=== PATIENT | female | born 1935 | race Two or more races ===

== ENCOUNTER 2017-05-16 13:17 | Outpatient (CLI) | payer MEDICARE, MEDICAID ==
[~2017-05-16 13:17] MED LIST: COLACE100 MG PO; LEVOTHYROXINE25 MCG PO; TYLENOL #31 TAB PO; UNK BP MED PO; UNK CHOLESTEROL PO
[2017-05-16 13:51] VITALS: BP 132/62
[2017-05-16] MEDS ORDERED: UNOBMED (14:02)
--- NOTE | 2017-05-16 14:21 | GI Initial Consult Note ---
Sloane Cristobal NPerlaPPerla 05/16/17 1421: History of Present Illness General Date patient seen: May 16, 2017 Time patient seen: 14:01 Referring physician: YAMILE Reason for Consultation: GI BLEED Present Illness HPI 82 year old female patient referred by Dr. Trimble presents today with c/o of GI bleed. The patient has history of EGD/colonoscopy performed back in 2009 found to have diffused gastritis, positive for H. Pylori s/p treatment and 3 colonic polyps. s/p polypectomy biopsy revealed high grade dysplasia in the ascending colon. The patient was instructed to return for repeat colonoscopy via certified mail in 2012 which was never done. Pt seen here in clinic today c/o of rectal bleed x4 in which she describes and dark. In addition, the patient states she has gradually been losing weight (noted 20 lbs over the past 7 years) . Ambulatory with no apparent distress. Home Meds Reported Medications Valsartan (DIOVAN) 80 Mg Tab, 160 MG ORAL DAILY, TAB 05/17/17 Meloxicam* (MELOXICAM*) 15 Mg Tablet, 15 MG PO DAILY, TAB 05/17/17 Levothyroxine Sodium* (LEVOTHYROXINE SODIUM*) 100 Mcg Tablet, 100 MCG ORAL DAILY , TAB Take in the morning on an empty stomach, at least 30 minutes before food. 05/17/17 Discontinued Reported Medications Levothyroxine Sodium* (LEVOTHYROXINE SODIUM*) 25 Mcg Tablet, 25 MCG PO DAILY 09/09/12 Discontinued Scripts Docusate Sodium* (COLACE*) 100 Mg Capsule, 100 MG PO BID, #30 CAP Prov:LACHELLE MCDUFFIE P.APerla 09/09/12 Acetaminophen/Codeine 300MG/30MG* (TYLENOL #3*) 1 Tab Tab, 1 TAB PO Q6H, #15 TAB Prov:LACHELLE MCDUFFIE P.APerla 09/09/12 Med list reviewed/reconciled: Yes Allergies: Coded Allergies: PENICILLINS (Verified Allergy, Mild, red spots, 05/17/17) Patient History History Provided By: Patient PMH Narrative HTN Hyperthyroidism Past Surgical History: Appendicitis Mar 2017 Left thumb ganglion Family History Narrative Sister >> liver CA sister >> GI malignancy Social History: Denies: smoking, alcohol use, drug use, other Review of Systems All Other Systems: negative except mentioned in HPI Physical Exam Vital Signs Date Time Temp Pulse Resp B/P (MAP) Pulse Ox O2 Delivery O2 Flow Rate FiO2 05/16/17 13:51 97.7 71 18 132/62 96 Sp02 EP Interpretation: reviewed General Appearance: well appearing, no apparent distress, alert Head: normocephalic EENT: PERRL/EOMI, normal ENT inspection Neck: supple Respiratory: normal breath sounds, no respiratory distress Cardiovascular: normal rate Gastrointestinal: normal inspection, non tender, soft Rectal: normal exam Genitourinary: normal inspection Musculoskeletal: normal inspection, back normal Neurologic: normal inspection, alert, oriented x3, responsive Psychiatric: normal inspection, judgement/insight normal, memory normal Skin: normal inspection, normal color, no rash, warm/dry Lymphatic: normal inspection, no adenopathy GI: Plan Problems: (1) History of Helicobacter pylori infection (2) High grade dysplasia in colonic adenoma (3) Colonoscopy planned (4) Weight loss (5) GI bleed (6) HTN (hypertension) (7) Hyperthyroidism Plan Colonoscopy scheduled 05/18/17 - CLD & prep instructions acknowledged by patient. labs to be drawn >> CBC, CMP, CEA Seen with Dr. Garcia. Thank you for this patient referral. ASHER GARCIA 05/17/17 7450: History of Present Illness Present Illness Home Meds Reported Medications Valsartan (DIOVAN) 80 Mg Tab, 160 MG ORAL DAILY, TAB 05/17/17 Meloxicam* (MELOXICAM*) 15 Mg Tablet, 15 MG PO DAILY, TAB 05/17/17 Levothyroxine Sodium* (LEVOTHYROXINE SODIUM*) 100 Mcg Tablet, 100 MCG ORAL DAILY , TAB Take in the morning on an empty stomach, at least 30 minutes before food. 05/17/17 Discontinued Reported Medications Levothyroxine Sodium* (LEVOTHYROXINE SODIUM*) 25 Mcg Tablet, 25 MCG PO DAILY 09/09/12 Discontinued Scripts Docusate Sodium* (COLACE*) 100 Mg Capsule, 100 MG PO BID, #30 CAP Prov:RETALACHELLE P.A. 09/09/12 Acetaminophen/Codeine 300MG/30MG* (TYLENOL #3*) 1 Tab Tab, 1 TAB PO Q6H, #15 TAB Prov:LACHELLE MCDUFFIE P.A. 09/09/12 Allergies: Coded Allergies: PENICILLINS (Verified Allergy, Mild, red spots, 05/17/17) GI: Plan Plan The patient was seen and examined at bedside and all new and available data was reviewed in the patients chart. I agree with the above findings, impression and plan. (Patient seen earlier today. Signature stamp does not reflect patient encounter time.). -Moriah Oseguera MDh Leobardo Matre May 16, 2017 14:21 ASHER GARCIA May 17, 2017 14:52
[2017-05-17] MEDS ORDERED: COMBIVENT RESPIM4 GM IH (11:54)
[2017-05-17] MEDS ORDERED: SIMVASTATIN20 MG ORAL (11:54)
[2017-05-17] MEDS ORDERED: FOLIC ACID1 MG ORAL (11:54)
[2017-05-17] MEDS ORDERED: VESICARE5 MG ORAL (11:54)
[2017-05-17] MEDS ORDERED: DIOVAN80 MG ORAL (11:54)
[2017-05-17] MEDS ORDERED: MELOXICAM15 MG PO (11:54)
[2017-05-17] MEDS ORDERED: LEVOTHYROXINE100 MCG ORAL (11:54)
== END 2017-05-16 13:50 | disposition home or self-care (01) ==
LOC: PAN 13:17
DX: K62.5 Hemorrhage of anus and rectum (principal); D12.6 Benign neoplasm of colon, unspecified; R63.4 Abnormal weight loss; I10 Essential (primary) hypertension; E05.90 Thyrotoxicosis, unspecified without thyrotoxic crisis or storm; Z88.0 Allergy status to penicillin
CPT/HCPCS: 99201

== ENCOUNTER 2017-05-18 09:01 | Day surgery (SDC) | payer MEDICARE, MEDICAID ==
[~2017-05-18] VITALS: Ht 152.4 cm; Wt 66.2 kg
[2017-05-18] VITALS (8 sets, daily range): BP systolic 121–139; BP diastolic 52–73
[~2017-05-18 09:01] MED LIST changes: +COMBIVENT RESPIM4 GM IH; +DIOVAN80 MG ORAL; +FOLIC ACID1 MG ORAL; +LEVOTHYROXINE100 MCG ORAL; +MELOXICAM15 MG PO; +SIMVASTATIN20 MG ORAL; +UNOBMED; +VESICARE5 MG ORAL
--- NOTE | 2017-05-18 09:44 | Anethesia Preoperative Eval ---
Anesthesia Pre-op PMH/ROS General Date of Evaluation: May 18, 2017 Time of Evaluation: 09:41 Anesthesiologist: attila ASA Score: ASA 3 Mallampati Score Class I : Soft palate, uvula, fauces, pillars visible Class II: Soft palate, uvula, fauces visible Class III: Soft palate, base of uvula visible Class IV: Only hard plate visible Mallampati Classification: Class II Surgeon: elian Diagnosis: gi bleed Surgical Procedure: egd/colonoscopy Anesthesia History: none Family History: no anesthesia problems Allergies: Coded Allergies: PENICILLINS (Verified Allergy, Mild, red spots, 05/17/17) Medications: see eMAR Past Medical History Cardiovascular: Reports: HTN Endocrine: Reports: hypothyroidism Hematology/Immune: Reports: anemia, other - adenoma Musculoskeletal/Integumentary: Reports: OA Other: obesity Anesthesia Pre-op Phys. Exam Physician Exam Last Vital Signs Date Time Temp Pulse Resp B/P (MAP) Pulse Ox O2 Delivery O2 Flow Rate FiO2 05/18/17 09:41 98.0 83 20 139/73 99 Room Air Constitutional: NAD Neurologic: CN 2-12 intact Cardiovascular: RRR Respiratory: CTA Gastrointestinal: S/NT/ND Airway Exam Mallampati Score: Class II MO: full Neck: supple TMD: 2fb ROM: limited Teeth: missing Anesthesia Pre-op A/P Labs Labs Test 05/18/17 09:50 White Blood Count 4.5 K/UL (4.8-10.8) Red Blood Count 3.37 M/UL (4.20-5.40) Hemoglobin 8.7 G/DL (12.0-16.0) Hematocrit 27.7 % (37.0-47.0) Mean Corpuscular Volume 82 FL (80-99) Mean Corpuscular Hemoglobin 25.7 PG (27.0-31.0) Mean Corpuscular Hemoglobin Concent 31.2 G/DL (32.0-36.0) Red Cell Distribution Width 17.2 % (11.6-14.8) Platelet Count 369 K/UL (150-450) Mean Platelet Volume 4.9 FL (6.5-10.1) Neutrophils (%) (Auto) 64.6 % (45.0-75.0) Lymphocytes (%) (Auto) 28.8 % (20.0-45.0) Monocytes (%) (Auto) 5.2 % (1.0-10.0) Eosinophils (%) (Auto) 0.9 % (0.0-3.0) Basophils (%) (Auto) 0.4 % (0.0-2.0) Sodium Level 140 mEQ/L (135-145) Potassium Level 4.0 mEQ/L (3.4-4.9) Chloride Level 103 mEQ/L (98-107) Carbon Dioxide Level 23 mEQ/L (20-30) Anion Gap 14 (5-15) Blood Urea Nitrogen 11 mg/dL (7-23) Creatinine 0.9 mg/dL (0.5-0.9) Estimat Glomerular Filtration Rate mL/min (>60) Glucose Level 115 mg/dL (74-106) Calcium Level 9.0 mg/dL (8.6-10.2) Total Bilirubin 0.5 mg/dL (0.0-1.2) Aspartate Amino Transf (AST/SGOT) 18 U/L (5-40) Alanine Aminotransferase (ALT/SGPT) 8 U/L (3-33) Alkaline Phosphatase 83 U/L (35-104) Total Protein 7.0 g/dL (6.6-8.7) Albumin 3.8 g/dL (3.5-5.2) Globulin 3.2 g/dL Albumin/Globulin Ratio 1.1 (1.0-2.7) Carcinoembryonic Antigen 1.4 ng/mL Studies Pre-op Studies: EKG - sinus rhythm with pacs Risk Assessment & Plan Assessment: asa3 Plan: mac Status Change Before Surgery: No Pre-Antibiotics Drug: ANA MARIA Martines May 18, 2017 09:44
[2017-05-18 10:19] LABS: BASOPHILS % (AUTO) 0.4 % (0.0-2.0); EOSINOPHILS % (AUTO) 0.9 % (0.0-3.0); LYMPHOCYTES % (AUTO) 28.8 % (20.0-45.0); MEAN CORPUSCULAR HEMOGLOBIN 25.7 PG (27.0-31.0); MEAN CORPUSCULAR HGB CONC 31.2 G/DL (32.0-36.0); MEAN CORPUSCULAR VOLUME 82 FL (80-99); MEAN PLATELET VOLUME 4.9 FL (6.5-10.1); MONOCYTES % (AUTO) 5.2 % (1.0-10.0); NEUTROPHILS % (AUTO) 64.6 % (45.0-75.0); PLATELET COUNT 369 K/UL (150-450); RED BLOOD COUNT 3.37 M/UL (4.20-5.40); RED CELL DISTRIBUTION WIDTH 17.2 % (11.6-14.8); WHITE BLOOD COUNT 4.5 K/UL (4.8-10.8)
--- NOTE | 2017-05-18 10:20 | Pre-Procedure Note/Attestation ---
Pre-Procedure Note/Attestation Complete Prior to Procedure Planned Procedure: not applicable Procedure Narrative: esophagogastroduodenoscopy and colonoscopy Indications for Procedure Pre-Operative Diagnosis: rectal bleed and wt loss Attestation I attest that I discussed the nature of the procedure; its benefits; risks and complications; and alternatives (and the risks and benefits of such alternatives ), prior to the procedure, with the patient (or the patient's legal floor representative). I attest that, if there was a reasonable possibility of needing a blood transfusion, the patient (or the patient's legal floor representative) was given the [facility] standardized written summary, pursuant to the [place] Blood Safety Act ([place] Health and Safety Code # 1645, as amended). I attest that I re-evaluated the patient just prior to the surgery and that there has been no change in the patient's H&P, except as documented below: ASHER GARCIA May 18, 2017 10:20
--- NOTE | 2017-05-18 10:20 | Short Stay Surgery H&P ---
History of Present Illness History of Present Illness Chief Complaint see recent full consult HPI Felicia Gunter is a 82 year old female who was admitted on for Rectal Bleeding Patient History Allergies: Coded Allergies: PENICILLINS (Verified Allergy, Mild, red spots, 05/17/17) PAST MEDICAL HISTORY: Past Surgeries: Social History: Medication History Scheduled Levothyroxine Sodium* (Levothyroxine Sodium*), 100 MCG ORAL DAILY, (Reported) Meloxicam* (Meloxicam*), 15 MG PO DAILY, (Reported) Valsartan (Diovan), 160 MG ORAL DAILY, (Reported) Discontinued Medications Acetaminophen/Codeine 300MG/30MG* (Tylenol #3*), 1 TAB PO Q6H Discontinued Reason: MD discontinued med Docusate Sodium* (Colace*), 100 MG PO BID Discontinued Reason: MD discontinued med Levothyroxine Sodium* (Levothyroxine Sodium*), 25 MCG PO DAILY, (Reported) Discontinued Reason: MD discontinued med Physical Exam Vital Signs Last Vital Signs Date Time Temp Pulse Resp B/P (MAP) Pulse Ox O2 Delivery O2 Flow Rate FiO2 05/18/17 09:41 98.0 83 20 139/73 99 Room Air Labs Laboratory Tests Test 05/18/17 09:50 White Blood Count Pending Red Blood Count Pending Hemoglobin Pending Hematocrit Pending Mean Corpuscular Volume Pending Mean Corpuscular Hemoglobin Pending Mean Corpuscular Hemoglobin Concent Pending Red Cell Distribution Width Pending Platelet Count Pending Mean Platelet Volume Pending Neutrophils (%) (Auto) Pending Lymphocytes (%) (Auto) Pending Monocytes (%) (Auto) Pending Eosinophils (%) (Auto) Pending Basophils (%) (Auto) Pending Sodium Level Pending Potassium Level Pending Chloride Level Pending Carbon Dioxide Level Pending Blood Urea Nitrogen Pending Creatinine Pending Estimat Glomerular Filtration Rate Pending Glucose Level Pending Calcium Level Pending Total Bilirubin Pending Aspartate Amino Transf (AST/SGOT) Pending Alanine Aminotransferase (ALT/SGPT) Pending Alkaline Phosphatase Pending Total Protein Pending Albumin Pending Globulin Pending Carcinoembryonic Antigen Pending Plan Attestation Are the patient's medical conditions optimized for surgery? ASHER GARCIA May 18, 2017 10:20
[2017-05-18 10:33] LABS: ALANINE AMINOTRANSFERASE 8 U/L (3-33); ALBUMIN/GLOBULIN RATIO 1.1 (1.0-2.7); ANION GAP 14 (5-15); ASPARTATE AMINO TRANSFERASE 18 U/L (5-40); CARBON DIOXIDE 23 mEQ/L (20-30); CHLORIDE 103 mEQ/L (98-107); CREATININE 0.9 mg/dL (0.5-0.9); HEMOLYSIS 15; SODIUM 140 mEQ/L (135-145)
[2017-05-18] MEDS ORDERED: Lidocaine 1% MPF 10mg/ml 5ml ONE (10:40)
[2017-05-18] MEDS ORDERED: Propofol 200mg/20ml IV ONE (10:40)
[2017-05-18] MEDS ORDERED: DiphenhydrAMINE 50mg/ml Inj IVP PRN (11:00)
[2017-05-18] MEDS ORDERED: Midazolam 2mg/2ml Inj IVP PRN (11:00)
[2017-05-18] MEDS ORDERED: Atropine Inj 1mg/10ml Syr IV PRN (11:00)
[2017-05-18] MEDS ORDERED: fentaNYL 100 mcg/2 mL IV PRN (11:00)
--- NOTE | 2017-05-18 11:26 | Endoscopy Procedure Note ---
Endoscopy Procedure Note Indication for Procedure: anemia Procedures Performed: EGD, colonoscopy Operative Findings/Diagnosis: gastritis, diverticulosis Specimen: yes Pt Tolerated Procedure Well: Yes Estimated Blood Loss: none Anesthesiologist: nael Anesthesia: MAC Implant(s) used?: No 50 yrs or older w/o bx or poly: No 10yrs. F/U not recommended: Yes If not recommended, why?: Above average risk 10 yrs. F/U needed: Yes 18 years or older w/prev. colo: Yes <3yrs. since last colonoscopy: No ASHER GARCIA May 18, 2017 11:26
--- NOTE | 2017-05-18 11:47 | Immediate Post-Op Evaluation ---
Immediate Post-Op Evalulation Immediate Post-Op Evalulation Procedure: egd/colonoscopy Date of Evaluation: May 18, 2017 Time of Evaluation: 11:47 IV Fluids: 500ml Blood Products: none Estimated Blood Loss: negligible Blood Pressure Systolic: 125 Blood Pressure Diastolic: 58 Pulse Rate: 74 Respiratory Rate: 18 O2 Sat by Pulse Oximetry: 99 Temperature (Fahrenheit): 97.3 Pain Score (1-10): 0 Nausea: No Vomiting: No Complications none Patient Status: awake, reacts, patent Hydration Status: adequate Drug: ANA MARIA Martines May 18, 2017 11:47
--- NOTE | 2017-05-18 11:49 | 48 Hour Post Anesthesia Eval ---
Post Anesthesia Evaluation Procedure: egd/colonoscopy Date of Evaluation: May 18, 2017 Time of Evaluation: 11:49 Blood Pressure Systolic: 136 0: 52 Pulse Rate: 64 Respiratory Rate: 18 Temperature (Fahrenheit): 97.3 O2 Sat by Pulse Oximetry: 100 Airway: patent Nausea: No Vomiting: No Pain Intensity: 0 Hydration Status: adequate Cardiopulmonary Status: stable Mental Status/LOC: patient returned to baseline Post-Anesthesia Complications: none Follow-up care needed: N/A ANA MARIA ARMENDARIZ May 18, 2017 11:49
--- NOTE | 2017-05-18 22:15 | Procedure Note ---
DATE OF PROCEDURE: 05/18/2017 SURGEON: Bala Walker M.D. REFERRING PHYSICIAN: Edmundo Trimble M.D. PROCEDURE: Upper endoscopy with biopsy and colonoscopy with biopsy. ANESTHESIOLOGIST: Janet Suggs M.D. INSTRUMENT: Olympus adult flexible upper endoscope and colonoscope. INDICATION: Anemia. The procedure, risks, benefits, and possible consequences, including hemorrhage, aspiration, perforation and infection, and alternative treatments, were explained to the patient/legal guardian by Dr. Bala Walker and the patient/legal guardian understood and accepted these risks. DESCRIPTION OF PROCEDURE: After informed consent was obtained and the patient was adequately sedated, Olympus upper endoscope was advanced from mouth into the second portion of the duodenum and retroflexion was performed in the stomach. The patient had diffuse atrophic gastritis. Random biopsy from antrum and body was obtained to rule out H. pylori infection. At this time, the upper endoscope was retrieved and the patient was turned over for colonoscopy. First, a rectal exam was performed, which showed normal. Then, the scope was advanced from the rectum into the cecum documented by appendiceal orifice, ileocecal valve, and right upper quadrant palpation. Quality of prep was overall okay, fair. The patient had significant diverticulosis throughout the colon, more prominent in the left, especially in the sigmoid and the descending colon. There were 2 polyps, both very small, 1 in the sigmoid and 1 in the transverse colon, removed with the cold biopsy forceps technique. There is no active bleeding at this time. No obvious mass or polyp was seen. Retroflexion in the rectum showed evidence of internal hemorrhoids. SUMMARY OF FINDINGS: 1. Atrophic gastritis, status post biopsy. 2. Two colonic polyps removed. 3. Diverticulosis. 4. Internal hemorrhoids. RECOMMENDATIONS: 1. Follow up biopsies and treat accordingly. 2. We will recommend to follow up as an outpatient. Possibly, we are going to order a CT scan to further evaluate for the cause of anemia and weight loss. I want to thank Dr. Edmundo Trimble for this kind referral. Bala Walker M.D. DR: ELAINE JOB#: [id number] CC: Edmundo Trimble M.D.; Fax#: [phone] [facility]
== END 2017-05-18 12:55 | disposition home or self-care (01) ==
LOC: GAS 09:01
DX: K29.50 Unspecified chronic gastritis without bleeding (principal); D64.9 Anemia, unspecified; K63.5 Polyp of colon; K57.30 Diverticulosis of large intestine without perforation or abscess without bleeding; K64.8 Other hemorrhoids; I10 Essential (primary) hypertension; E03.9 Hypothyroidism, unspecified; M19.90 Unspecified osteoarthritis, unspecified site; Z88.0 Allergy status to penicillin
CPT/HCPCS: 36415; 43239; 45380; 80053; 82378; 85025; J2704; 94003; 94150

== ENCOUNTER 2017-06-06 12:59 | Outpatient (CLI) | payer MEDICARE, MEDICAID ==
[2017-06-06 13:20] VITALS: BP 136/61
--- NOTE | 2017-06-06 14:18 | GI Progress Note ---
Assessment/Plan Status Narrative Seen with Dr. Walker. Assessment/Plan SUMMARY OF FINDINGS reviewed with patient: 1. Atrophic gastritis, status post biopsy. 2. Two colonic polyps removed. 3. Diverticulosis. 4. Internal hemorrhoids. RECOMMENDATIONS: follow up biopsies and treat accordingly. >> Negative for H. Pylori and negative for high grade dysplasia. rx anusol ordered CT AP for weight loss/anemia. RTC after imaging studies repeat colonoscopy x 5 years Subjective Subjective Gastrointestinal/Abdominal: Reports: no symptoms Subjective hemorrhoids Objective Objective T 97.6 BP 136/61 P 70 wt 147 lbs General Appearance: WD/WN, no apparent distress, alert Cardiovascular: normal rate Respiratory/Chest: normal breath sounds, no respiratory distress Abdominal Exam: normal bowel sounds, non tender, soft Extremities: normal range of motion, non-tender The patient was seen and examined at bedside and all new and available data was reviewed in the patients chart. I agree with the above findings, impression and plan. (Patient seen earlier today. Signature stamp does not reflect patient encounter time.). - Teresa Walker MD Subjective Gastrointestinal/Abdominal: Reports: no symptoms Subjective hemorrhoids Objective Last 24 Hour Vital Signs Date Time Temp Pulse Resp B/P (MAP) Pulse Ox O2 Delivery O2 Flow Rate FiO2 06/06/17 13:20 97.6 70 16 136/61 Sloane Cristobal N.P. Jun 06, 2017 14:18 ASHER WALKER Jun 07, 2017 07:22
== END 2017-06-06 14:00 | disposition home or self-care (01) ==
LOC: PAN 12:59
DX: K29.40 Chronic atrophic gastritis without bleeding (principal); Z86.010 Personal history of colon polyps; K57.90 Diverticulosis of intestine, part unspecified, without perforation or abscess without bleeding; K64.8 Other hemorrhoids
CPT/HCPCS: 99211

== ENCOUNTER 2017-06-12 09:52 | Outpatient (CLI) | payer MEDICARE, MEDICAID ==
--- NOTE | 2017-06-06 14:03 | GI Progress Note ---
Assessment/Plan Problems: (1) Diverticulosis ICD Codes: K57.90 - Diverticulosis of intestine, part unspecified, without perforation or abscess without bleeding SNOMED: 523618895 (2) Bleeding hemorrhoid ICD Codes: K64.9 - Unspecified hemorrhoids SNOMED: 97040046 (3) High grade dysplasia in colonic adenoma ICD Codes: D12.6 - Benign neoplasm of colon, unspecified SNOMED: 996214357 Status: stable Status Narrative Seen with Dr. Walker. Assessment/Plan SUMMARY OF FINDINGS reviewed with patient: 1. Atrophic gastritis, status post biopsy. 2. Two colonic polyps removed. 3. Diverticulosis. 4. Internal hemorrhoids. RECOMMENDATIONS: follow up biopsies and treat accordingly. >> Negative for H. Pylori and negative for high grade dysplasia. rx anusol ordered CT AP for weight loss/anemia. RTC after imaging studies repeat colonoscopy x 5 years Subjective Gastrointestinal/Abdominal: Reports: no symptoms Subjective hemorrhoids Objective T 97.6 BP 136/61 P 70 wt 147 lbs General Appearance: WD/WN, no apparent distress, alert Cardiovascular: normal rate Respiratory/Chest: normal breath sounds, no respiratory distress Abdominal Exam: normal bowel sounds, non tender, soft Extremities: normal range of motion, non-tender Sloane Cristobal N.P. Jun 06, 2017 14:03
[2017-06-12 10:35] LABS: BASOPHILS % (AUTO) 0.4 % (0.0-2.0); EOSINOPHILS % (AUTO) 1.5 % (0.0-3.0); MEAN CORPUSCULAR HEMOGLOBIN 24.3 PG (27.0-31.0); MEAN CORPUSCULAR HGB CONC 29.8 G/DL (32.0-36.0); MEAN CORPUSCULAR VOLUME 82 FL (80-99); MEAN PLATELET VOLUME 5.3 FL (6.5-10.1); MONOCYTES % (AUTO) 4.9 % (1.0-10.0); NEUTROPHILS % (AUTO) 59.2 % (45.0-75.0); PLATELET COUNT 389 K/UL (150-450); RED BLOOD COUNT 4.13 M/UL (4.20-5.40); RED CELL DISTRIBUTION WIDTH 16.9 % (11.6-14.8); WHITE BLOOD COUNT 5.7 K/UL (4.8-10.8)
--- NOTE | 2017-06-12 13:48 | Diagnostic Imaging Report ---
Indication: Weight loss and anemia. Gastritis. Technique: Continuous helical transaxial imaging of the chest, abdomen and pelvis was obtained from the lung bases to the pubic symphysis during intravenous contrast administration. Multiple phases of enhancement obtained. Coronal 2-D reformats were also obtained. Study obtained in a Siemens sensation [address] Total Dose length Product (DLP): [address] Dose Index Volume (CTDIvol): 0.15, 8.11, 56.78, 21.4, 20.38 mGy Comparison: CT chest 06/18/13 Findings: The lungs are essentially clear. There is no mass or nodules. There is a minimal amount of scarring or atelectasis at the lung bases with some reticular densities noted. There is no adenopathy. Aorta is ectatic and calcified. Axilla. Clear. The heart is mildly enlarged. There is a small hiatal hernia present. The liver is hypodense consistent with fatty infiltration. Slightly hyperdense focus noted within nondependent portion of the gallbladder wall. This may be a polyp or wall adherent stone. There is no biliary ductal dilatation. The portal vein enhances normally. Pancreas is unremarkable. The spleen and adrenal glands are unremarkable. No hydronephrosis demonstrated. The uterus is present. Diverticula noted within the colon. No definite evidence of acute diverticulitis. The appendix is not fully seen. There are no secondary signs of acute appendicitis. No free fluid or free air identified. Impression: No malignancy demonstrated on this study. Fatty liver Hiatal hernia Atherosclerotic vascular disease. Watershed stone versus a polyp in the gallbladder. Diverticulosis of the colon. The CT scanner at [facility] is accredited by the [employer] and the scans are performed using dose optimization techniques as appropriate to a performed exam including Automatic Exposure control.
== END 2017-06-12 11:52 | disposition home or self-care (01) ==
LOC: CAT 09:52
DX: D64.9 Anemia, unspecified (principal); R63.4 Abnormal weight loss; K76.0 Fatty (change of) liver, not elsewhere classified; K44.9 Diaphragmatic hernia without obstruction or gangrene; I70.90 Unspecified atherosclerosis; K57.30 Diverticulosis of large intestine without perforation or abscess without bleeding
CPT/HCPCS: 36415; 71260; 74177; 85025; Q9967

== ENCOUNTER 2017-06-21 14:17 | Outpatient (CLI) | payer MEDICARE, MEDICAID ==
[2017-06-21 14:29] VITALS: BP 134/58
--- NOTE | 2017-06-21 15:24 | GI Progress Note ---
Assessment/Plan Problems: (1) High grade dysplasia in colonic adenoma ICD Codes: D12.6 - Benign neoplasm of colon, unspecified SNOMED: 111846954 (2) Bleeding hemorrhoid ICD Codes: K64.9 - Unspecified hemorrhoids SNOMED: 73455583 (3) History of Helicobacter pylori infection ICD Codes: Z86.19 - Personal history of other infectious and parasitic diseases SNOMED: 746533938437306 (4) GI bleed ICD Codes: K92.2 - Gastrointestinal hemorrhage, unspecified SNOMED: 34000678 (5) Weight loss ICD Codes: R63.4 - Abnormal weight loss SNOMED: 62455663, 663860194 (6) Diverticulosis ICD Codes: K57.90 - Diverticulosis of intestine, part unspecified, without perforation or abscess without bleeding SNOMED: 128026278 Status: stable Status Narrative Seen with Dr. Walker. Assessment/Plan SUMMARY OF FINDINGS reviewed with patient: 1. Atrophic gastritis, status post biopsy. 2. Two colonic polyps removed. 3. Diverticulosis. 4. Internal hemorrhoids. CT AP for weight loss/anemia >> unremarkable follow up biopsies and treat accordingly. >> Negative for H. Pylori and negative for high grade dysplasia. RECOMMENDATIONS: cont anusol RTC prn repeat colonoscopy x 5 years The patient was seen and examined at bedside and all new and available data was reviewed in the patients chart. I agree with the above findings, impression and plan. (Patient seen earlier today. Signature stamp does not reflect patient encounter time.). - Teresa Walker MD Subjective Gastrointestinal/Abdominal: Reports: no symptoms Objective Last 24 Hour Vital Signs Date Time Temp Pulse Resp B/P (MAP) Pulse Ox O2 Delivery O2 Flow Rate FiO2 06/21/17 14:29 98.1 79 16 134/58 General Appearance: WD/WN, no apparent distress, alert Cardiovascular: normal rate Respiratory/Chest: normal breath sounds, no respiratory distress Abdominal Exam: normal bowel sounds, non tender, soft Extremities: normal range of motion, non-tender Sloane Cristobal N.PPerla Jun 21, 2017 15:24 ASHER WALKER Jun 22, 2017 10:09
== END 2017-06-21 15:00 | disposition home or self-care (01) ==
LOC: PAN 14:17
DX: D12.6 Benign neoplasm of colon, unspecified (principal); K64.9 Unspecified hemorrhoids; Z86.19 Personal history of other infectious and parasitic diseases; K92.2 Gastrointestinal hemorrhage, unspecified; R63.4 Abnormal weight loss; K57.90 Diverticulosis of intestine, part unspecified, without perforation or abscess without bleeding; K29.40 Chronic atrophic gastritis without bleeding
CPT/HCPCS: 99211